=== PATIENT | female | born 1965 | race Caucasian/White ===

== ENCOUNTER 2018-09-18 13:41 | Outpatient (CLI) | payer OTHER ==
--- NOTE | 2018-09-18 14:20 | MMO ---
Bilateral MAMMO Bilat Screen [facility]. CLINICAL HISTORY: Patient is 53 years old and is seen for screening. The patient has the following family history of breast cancer: mother and great aunt, Maternal. The patient has no personal history of cancer. VIEWS: The views performed were: bilateral craniocaudal with tomosynthesis and bilateral mediolateral oblique with tomosynthesis. FILMS COMPARED: The present examination has been compared to prior imaging studies performed at [facility] on 02/20/2005, 03/23/2009, 04/01/2012 and 10/07/2014. MAMMOGRAM FINDINGS: There are scattered fibroglandular densities. There are no suspicious masses, suspicious calcifications, or new areas of architectural distortion. IMPRESSION: THERE IS NO MAMMOGRAPHIC EVIDENCE OF MALIGNANCY. A ROUTINE FOLLOW-UP MAMMOGRAM IN 1 YEAR IS RECOMMENDED. THE RESULTS OF THIS EXAM WERE SENT TO THE PATIENT. ACR BI-RADS Category 1 - Negative MAMMOGRAPHY NOTE: 1. A negative mammogram report should not delay a biopsy if a dominant of clinically suspicious mass is present. 2. Approximately 10% to 15% of breast cancers are not detected by mammography. 3. Adenosis and dense breasts may obscure an underlying neoplasm.
== END 2018-09-18 13:42 | disposition home or self-care (01) ==
LOC: BICMAMMO 13:41
PROVIDERS: ATTEND Obstetrics & Gynecology
DX: Z12.31 Encounter for screening mammogram for malignant neoplasm of breast (principal); Z80.3 Family history of malignant neoplasm of breast
CPT/HCPCS: 77063; 77067

== ENCOUNTER 2020-05-08 14:07 | Outpatient (CLI) | payer OTHER ==
--- NOTE | 2020-05-08 15:20 | BD ---
EXAM: Bone densitometry using DEXA HISTORY: 54 yo female. Screening for postmenopausal osteoporosis FINDINGS: L1--bone mineral density 0.968 g/sq cm; T score -2.2 ; Z score 0.6 L2--bone mineral density 1.037 g/sq cm; T score 0.1 ; Z score 1.0 L3--bone mineral density 1.174 g/sq cm; T score 0.8 ; Z score 1.8 L4--bone mineral density 1.160 g/sq cm; T score 0.9 ; Z score 1.9 Total L1-L4--bone mineral density 1.090 g/sq cm; T score 0.4 ; Z score 1.3 Left femoral neck--bone mineral density0.874; T score 0.2 ; Z score 1.1 Total proximal left femur--bone mineral density 1.112; T score 1.4 ; Z score 2.0 IMPRESSION: Normal BMD
--- NOTE | 2020-05-08 15:39 | ULT ---
RIGHT BREAST ULTRASOUND: HISTORY: Abnormal mammogram. FINDINGS: Correlation is made with mammograms of today and 04/05/2020. Sonographic evaluation of the right upper outer breast and the retroareolar/central portion of the ri ght breast posteriorly demonstrates no abnormality. IMPRESSION: BIRADS category 3 - probably benign findings. A followup diagnostic mammogram is recommended in 6 mo nths. POS: OFF
--- NOTE | 2020-05-08 15:43 | MMO ---
Right Breast MAMMO Unilat Diag [facility]. CLINICAL HISTORY: Patient is 54 years old and is seen for additional evaluation requested from prior study. The patient has the following family history of breast cancer: mother and great aunt, Maternal. The patient has no personal history of cancer. VIEWS: The views performed were: right craniocaudal spot compression with tomosynthesis; right mediolateral oblique spot compression with tomosynthesis; and right mediolateral with tomosynthesis. FILMS COMPARED: The present examination has been compared to prior imaging studies performed at [facility] on 04/05/2020, and at [facility] on 10/07/2014, 09/18/2018 and 05/08/2020. This study has been interpreted with the assistance of computer-aided detection. MAMMOGRAM FINDINGS: There are scattered fibroglandular densities. Additional views were performed. The Right MLO and CC views were repeated which seen. IMPRESSION: FINDING IN THE RIGHT BREAST IS PROBABLY BENIGN. FOLLOW-UP IN 6 MONTHS IS RECOMMENDED. THE RESULTS OF THIS EXAM WERE SENT TO THE PATIENT. ACR BI-RADS Category 3 - Probably benign finding - short interval follow-up suggested. [facility] will notify the patient of the need for additional imaging services. MAMMOGRAPHY NOTE: 1. A negative mammogram report should not delay a biopsy if a dominant of clinically suspicious mass is present. 2. Approximately 10% to 15% of breast cancers are not detected by mammography. 3. Adenosis and dense breasts may obscure an underlying neoplasm. Reported by: RANI BIRD MD Electonically Signed: [id number]
== END 2020-05-08 14:08 | disposition home or self-care (01) ==
LOC: BICMAMMO 14:07
PROVIDERS: ATTEND Obstetrics & Gynecology
DX: Z13.820 Encounter for screening for osteoporosis (principal); R92.2 Inconclusive mammogram
CPT/HCPCS: 77080; G0279